=== PATIENT | male | born 1970 | race African-American/Black ===

== ENCOUNTER → 2016-09-24 | Outpatient (CLI) | payer OTHER ==
[~2016-09-24] MED LIST: ADVIL200 MG PO; NORCO 325 MG-51 TAB PO; VIIBRYD10 MG
[2016-09-24 11:34] LABS: HEMATOCRIT 40.2 % (42.0-52.0); HEMOGLOBIN 13.2 g/dl (13.5-18.0)
[2016-09-24 11:44] LABS: ADJUSTED CALCIUM 8.9 mg/dL (8.4-10.2); ALBUMIN 4.2 gm/dL (3.5-5.0); BILIRUBIN,TOTAL 0.5 mg/dL (0.0-1.0); CALCIUM 9.1 mg/dL (8.4-10.2); CREATININE, serum 0.92 mg/dL (0.66-1.25); POTASSIUM 4.9 mmol/L (3.4-5.0)
== END ==
LOC: ZLAB.FHCC 10:47 → COL.LAB 10:47
DX: I10 Essential (primary) hypertension (principal)

== ENCOUNTER 2016-12-05 14:54 | Emergency (ER) | payer SELFPAY ==
[~2016-12-05] VITALS: Ht 193 cm; Wt 91.8 kg
[~2016-12-05 14:54] MED LIST changes: -ADVIL200 MG PO; -NORCO 325 MG-51 TAB PO
[2016-12-05 15:10] VITALS: BP 109/72; PULSE 68; TEMP 98.3
[2016-12-05] MEDS ORDERED: ADVIL200 MG PO (15:37)
[2016-12-05] MEDS ORDERED: NORCO 325 MG-51 TAB PO (15:57)
== END 2016-12-05 16:14 | disposition home or self-care (01) ==
LOC: COL.ER 14:54
DX: M70.61 Trochanteric bursitis, right hip (principal); F17.210 Nicotine dependence, cigarettes, uncomplicated; X50.9XXA Other and unspecified overexertion or strenuous movements or postures, initial encounter; Z98.890 Other specified postprocedural states

== ENCOUNTER 2017-05-13 13:12 | Emergency (ER) | payer SELFPAY ==
[~2017-05-13] VITALS: Ht 193 cm; Wt 87.3 kg
[~2017-05-13 13:12] MED LIST changes: +ADVIL200 MG PO; +NORCO 325 MG-51 TAB PO
[2017-05-13 13:21] VITALS: BP 154/63; PULSE 85; TEMP 98.9
== END 2017-05-13 16:30 | disposition home or self-care (01) ==
LOC: COL.ER 13:12
DX: S39.011A Strain of muscle, fascia and tendon of abdomen, initial encounter (principal); F17.210 Nicotine dependence, cigarettes, uncomplicated; X50.1XXA Overexertion from prolonged static or awkward postures, initial encounter

== ENCOUNTER 2017-10-01 08:32 | Emergency (ER) | payer OTHER ==
[~2017-10-01] VITALS: Ht 193 cm; Wt 96.4 kg
[2017-10-01 08:34] VITALS: TEMP 98.8
[2017-10-01] MEDS ORDERED: CEPHALEXIN500 M1 PO (11:20)
[2017-10-01] MEDS ORDERED: BACTRIM DS 8001 TAB PO (11:20)
[2017-10-01 11:55] VITALS: BP 119/75; PULSE 61
== END 2017-10-01 11:55 ==
LOC: COL.ER 08:32
DX: S61.214A Laceration without foreign body of right ring finger without damage to nail, initial encounter (principal); S60.444A External constriction of right ring finger, initial encounter; Z23 Encounter for immunization; W22.8XXA Striking against or struck by other objects, initial encounter